=== PATIENT | female | born 1960 | race African-American/Black ===

== ENCOUNTER 2016-12-28 11:14 | Emergency (ER) | payer MEDICAID ==
[~2016-12-28] VITALS: Ht 162.6 cm; Wt 87.0 kg
[2016-12-28] MEDS ORDERED: AMLODIPINE 5MG TABLET PO ONE ×2 (18:15→20:15)
[2016-12-28 18:22] LABS: CLARITY URINE CLEAR (CLEAR); COLOR URINE DARK YELLOW (YELLOW); GLUCOSE URINE NEGATIVE (NEGATIVE); KETONES URINE 3+ (NEGATIVE); LEUKOCYTE ESTERASE URINE TRACE (NEGATIVE); NITRITE URINE NEGATIVE (NEGATIVE); OCCULT BLOOD URINE NEGATIVE (NEGATIVE); PH URINE 5.5 (4.5-8.0); PROTEIN URINE TRACE (NEGATIVE); SPECIFIC GRAVITY URINE 1.032 (1.005-1.030)
[2016-12-28 18:37] LABS: BASOPHILS % 0.8 % (0.0-2.0); HEMATOCRIT. 43.9 % (36.0-48.0); HEMOGLOBIN. 14.5 g/dL (12.0-16.0); LYMPHOCYTES % 14.3 % (20.0-50.0); MEAN CORPUSCULAR HEMOGLOBIN 26.2 pg (28.0-32.0); MEAN CORPUSCULAR VOLUME 79.5 fL (81.0-99.0); MEAN PLATELET VOLUME 8.1 fl (7.4-10.4); MONOCYTES % 6.1 % (2.0-8.0); NEUTROPHILS % 77.8 % (40.0-76.0); PLATELET 246 x1000/uL (130-400); RED BLOOD CELL COUNT 5.52 mill/uL (4.2-5.4); RED CELL DISTRIBUTION WIDTH 14.3 % (11.6-14.6)
[2016-12-28 18:38] LABS: *AMPHETAMINES SCREEN URINE NEGATIVE (NEGATIVE); *BARBITURATES SCREEN URINE NEGATIVE (NEGATIVE); *BENZODIAZEPINES SCREEN URINE NEGATIVE (NEGATIVE); *COCAINE SCREEN URINE NEGATIVE (NEGATIVE); CANNABINOID URINE SCREEN NEGATIVE (NEGATIVE); METHADONE URINE SCREEN NEGATIVE (NEGATIVE); OPIATES URINE SCREEN NEGATIVE (NEGATIVE); PHENCYCLIDINE URINE SCREEN NEGATIVE (NEGATIVE)
[2016-12-28 18:45] LABS: INR 1.1; PROTHROMBIN TIME 11.4 sec
[2016-12-28 18:49] LABS: AMMONIA 31 uMol/L (<32)
[2016-12-28 18:56] LABS: CARBON DIOXIDE 26 mEq/L (21-32); CHLORIDE 103 mEq/L (98-107); ETHANOL BLOOD < 10 mg/dL
[2016-12-28 19:01] LABS: TROPONIN I < 0.02 ng/mL (0.00-0.04)
[2016-12-28] MEDS ORDERED: METOCLOPRAMIDE HCL 10MG/2ML VIAL IV ONE (20:15)
[2016-12-28] MEDS ORDERED: KETOROLAC 30MG/ML VIAL IV ONE (20:15)
[2016-12-28 20:24] VITALS: BP 193/126
== END 2016-12-28 21:22 | disposition home or self-care (01) ==
LOC: ER 17:18
DX: R51 Headache (principal); R42 Dizziness and giddiness; I10 Essential (primary) hypertension; M25.522 Pain in left elbow; M25.561 Pain in right knee; M25.562 Pain in left knee; M25.521 Pain in right elbow; S50.312A Abrasion of left elbow, initial encounter; S50.311A Abrasion of right elbow, initial encounter; S80.212A Abrasion, left knee, initial encounter; S80.211A Abrasion, right knee, initial encounter; W01.0XXA Fall on same level from slipping, tripping and stumbling without subsequent striking against object, initial encounter; Y93.89 Activity, other specified; Y92.89 Other specified places as the place of occurrence of the external cause
CPT/HCPCS: 36415; 70450; 73080; 73562; 76881; 80053; 80305; 81001; 82140; 84484; 85025; 85610; 93005; 96374; 96375; 99285; G0482; J1885; J2765; Z7610

== ENCOUNTER 2017-05-17 10:02 | Emergency (ER) | payer MEDICAID ==
[~2017-05-17] VITALS: Ht 162.6 cm; Wt 86.0 kg
[2017-05-17] MEDS ORDERED: ACETAMINOPHEN WITH CODEINE 300/30MG TABLET PO ONE (13:45)
[2017-05-17] MEDS ORDERED: IBUPROFEN 600MG TABLET PO ONE (13:45)
[2017-05-17 13:51] VITALS: BP 144/108
== END 2017-05-17 14:12 | disposition home or self-care (01) ==
LOC: ER 10:35
DX: B02.9 Zoster without complications (principal); I10 Essential (primary) hypertension; Z86.19 Personal history of other infectious and parasitic diseases; Z88.1 Allergy status to other antibiotic agents; Z88.8 Allergy status to other drugs, medicaments and biological substances
CPT/HCPCS: 99283

== ENCOUNTER 2017-12-05 07:00 | Emergency (ER) | payer MEDICAID ==
[~2017-12-05] VITALS: Ht 162.6 cm; Wt 87.0 kg
[2017-12-05] MEDS ORDERED: SODIUM CHLORIDE 0.9% 1,000 ML IV ONE (07:58)
[2017-12-05] MEDS ORDERED: MORPHINE SULFATE 4 MG/ML CPJ (NOT FOR IM USE) IV STA (07:58)
[2017-12-05] MEDS ORDERED: ONDANSETRON HCL 4MG/2ML VIAL IV STA (07:58)
[2017-12-05 08:45] LABS: BASOPHILS % 0.8 % (0.0-2.0); EOSINOPHILS % 1.7 % (0.0-5.0); HEMATOCRIT. 44.2 % (36.0-48.0); HEMOGLOBIN. 14.4 g/dL (12.0-16.0); LYMPHOCYTES % 13.2 % (20.0-50.0); MEAN CORPUSCULAR HEMOGLOBIN 26.2 pg (28.0-32.0); MEAN CORPUSCULAR VOLUME 80.4 fL (81.0-99.0); MEAN PLATELET VOLUME 7.9 fl (7.4-10.4); MONOCYTES % 4.3 % (2.0-8.0); PLATELET 302 x1000/uL (130-400); RED BLOOD CELL COUNT 5.49 mill/uL (4.2-5.4); RED CELL DISTRIBUTION WIDTH 15.1 % (11.6-14.6)
[2017-12-05 08:54] LABS: CHLORIDE 113 mEq/L (98-107)
[2017-12-05 08:56] LABS: D-DIMER 0.39 mg/L FEU (<0.50); PROTHROMBIN TIME 10.3 sec (9.4-11.6)
[2017-12-05 10:46] LABS: CLARITY URINE CLOUDY (CLEAR); COLOR URINE YELLOW (YELLOW); KETONES URINE NEGATIVE (NEGATIVE); LEUKOCYTE ESTERASE URINE NEGATIVE (NEGATIVE); NITRITE URINE NEGATIVE (NEGATIVE); OCCULT BLOOD URINE NEGATIVE (NEGATIVE); PROTEIN URINE NEGATIVE (NEGATIVE); SPECIFIC GRAVITY URINE 1.022 (1.005-1.030)
[2017-12-05 11:41] VITALS: BP 131/74
== END 2017-12-05 12:01 | disposition home or self-care (01) ==
LOC: ER 09:43
DX: R10.11 Right upper quadrant pain (principal); I10 Essential (primary) hypertension; G43.909 Migraine, unspecified, not intractable, without status migrainosus; Z90.49 Acquired absence of other specified parts of digestive tract; Z88.1 Allergy status to other antibiotic agents; Z88.8 Allergy status to other drugs, medicaments and biological substances; Z87.891 Personal history of nicotine dependence
CPT/HCPCS: 36415; 71045; 74176; 76705; 80053; 81003; 83605; 83690; 84484; 85025; 85379; 85610; 93005; 96374; 96375; 99285; J2270; J2405; J7030; Z7610